=== PATIENT | male | born 1985 | race Caucasian/White ===

== ENCOUNTER 2019-06-03 13:39 | Emergency (ER) | payer SELFPAY ==
[2019-06-03 13:44] VITALS: BP 156/94; PULSE 65; RESP 14; TEMP 36.6; O2SAT 95
--- NOTE | 2019-06-03 13:52 | ED.GENADUL_ITS ---
Discharge Plan Disposition Patient Disposition: HOME Condition: Stable Discharge Details Chief Complaint: Orthopedic Clinical Impression: Contusion of hand, Contusion of right wrist, Abrasion hand Primary Care Provider: None,None ED Provider: Wendy Cardenas Home Meds and New Rx's Prescriptions: No Action No Known Home Meds RF: 0 Discharge Instructions Instructions: Contusion in Adults (ED), Abrasion (ED) Additional Instructions: Rest, ice and elevate your right hand and wrist as much as possible. Alternate Tylenol and Motrin as needed and directed for pain. Follow-up with the primary care doctor within the next week for reevaluation as needed. Return to the emergency department if you develop any worsening or new concerning symptoms. Discharge Data Discharge Date/Time-TO BE ENTERED AT DEPARTURE: 06/03/19 15:25 Discharge Physician: Wendy Cardenas Medical Decision Making 33-year-old male who presents with right hand and wrist pain after crushed under a water heater at work 30 minutes ago. He has a superficial abrasion to his right dorsal hand webspace and an area of edema right dorsal wrist. No right snuffbox tenderness. Unknown tetanus status tetanus given today. Hand and forearm x-rays negative. Offered to clean and dress wound but patient declines. Given Ramón wrap for home. He was advised on rice. Patient placed on care management list to arrange for a follow-up appoint with the primary care doctor. Usual and customary return precautions given prior to discharge. Imaging Data Radiologic Study: Radiologist's impression: XR HAND RT COMPLETE CLINICAL HISTORY: water heater crushed hand, r/o acute fx. TECHNIQUE: 2D digital imaging was performed. COMPARISON: No exams were available for comparison FINDINGS: BONES: No acute fracture is present. No bony destructive lesion is seen. JOINTS: No dislocation present. SOFT TISSUE: Normal. IMPRESSION: Unremarkable radiographs of the right hand. XR FOREARM RT CLINICAL HISTORY: water heater crushed wrist/forearm, r/o acute fx. TECHNIQUE: 2D digital imaging was performed. COMPARISON: No exams were available for comparison FINDINGS: BONES: No acute fracture is present. No bony destructive lesion is seen. Visualized portion of elbow and wrist joints are unremarkable. SOFT TISSUE: Normal. FINDINGS: Unremarkable radiographs of the right forearm. HPI General Mode of arrival: ambulatory . Date/Time Provider Initiated Documentation: 06/03/19 13:41 . Limitations to Documentation: no limitations . Information obtained by: patient . History of Present Illness 33 year old M presents to the emergency department with the chief complaint of R hand and wrist pain , Quality is described as aching, and is localized to the upper extremity. Patient proximal (from R hand to R distal forearm) and reports radiation to. Patient started experiencing this minute(s) (30) and it has been constant. Rest improves symptom(s), Movement worsens symptoms . Patient notes no other symptoms.. Patient did receive the following treatments prior to arrival, none Related Data Home Medications Medication Instructions Recorded Confirmed Unknown [No Known Home Meds] 06/03/19 06/03/19 Allergies Allergy/AdvReac Type Severity Reaction Status Date / Time pistachio nut Allergy Unverified 06/03/19 13:48 General Stated Complaint: Orthopedic MART: 4 Review of Systems All systems reviewed & are unremarkable except as noted in HPI and below PFSH Social History Smoking/Tobacco Use Status: Current every day Tobacco Type: cigarettes Alcohol Intake: current Alcohol Intake frequency: a few times a week Drug use: Never Substance use type: does not use Do you feel safe at home: Yes Do you feel safe in your relationship?: Yes Exam Const General: cooperative, healthy appearing and no acute distress HENMT Head: normal to inspection Mouth: oral mucosae normal Eyes General: appearance normal, both eyes and all related structures Neck Neck: normal visual inspection Resp Effort & Inspection: normal respiratory effort and able to speak in complete sentences Cardio Rate: regular rate Skin General skin exam: no rashes or lesions noted Neuro General: alert, awake and oriented x3 Motor: muscle tone normal throughout Extrem Elbow/forearm/wrist images: 1. 5 x 5 cm area of tender edema on dorsal wrist. No ecchymosis, erythema. Hand/finger images: 1. 1 x 1 cm superficial abrasion 2. 1 cm C-shaped superficial laceration. Edges well approximated. 3. 1 cm old healing laceration. Psych Appearance: grossly normal Affect: normal affect Course Vital Signs Vital signs: Vital Signs Temperature 97.9 F 06/03/19 13:44 Pulse 65 06/03/19 13:44 Respiratory Rate 14 06/03/19 13:44 Blood Pressure 156/94 H 06/03/19 13:44 Pulse Oximetry 95 06/03/19 13:44 Temperature 97.9 F 06/03/19 13:44 Temperature Source Temporal Artery Scan 06/03/19 13:44 Pulse 65 06/03/19 13:44 Respiratory Rate 14 06/03/19 13:44 Respiratory Effort Non-Labored 06/03/19 13:46 Blood Pressure 156/94 H 06/03/19 13:44 Blood Pressure Position Sitting 06/03/19 13:44 Pulse Oximetry 95 06/03/19 13:44 Oxygen Delivery Method Room Air 06/03/19 13:44 Oxygen Flow Rate 0 06/03/19 13:44 Pain Level 3 06/03/19 13:46
--- NOTE | 2019-06-03 14:37 | DI.RAD_ITS ---
EXAM: XR HAND RT COMPLETE CLINICAL HISTORY: water heater crushed hand, r/o acute fx. TECHNIQUE: 2D digital imaging was performed. COMPARISON: No exams were available for comparison FINDINGS: BONES: No acute fracture is present. No bony destructive lesion is seen. JOINTS: No dislocation present. SOFT TISSUE: Normal. IMPRESSION: Unremarkable radiographs of the right hand.
--- NOTE | 2019-06-03 14:39 | DI.RAD_ITS ---
EXAM: XR FOREARM RT CLINICAL HISTORY: water heater crushed wrist/forearm, r/o acute fx. TECHNIQUE: 2D digital imaging was performed. COMPARISON: No exams were available for comparison FINDINGS: BONES: No acute fracture is present. No bony destructive lesion is seen. Visualized portion of elbow and wrist joints are unremarkable. SOFT TISSUE: Normal. FINDINGS: Unremarkable radiographs of the right forearm.
--- NOTE | 2019-06-05 17:39 | NUR.NOTE ---
Nursing Note: Referral given to Surgical Assistant to establish care and follow up. Siria Paniagua.
== END 2019-06-03 15:25 | disposition home or self-care (01) ==
PROVIDERS: Emergency Provider Physician Assistant
DX: S60.511A Abrasion of right hand, initial encounter (principal); S60.211A Contusion of right wrist, initial encounter; W23.1XXA Caught, crushed, jammed, or pinched between stationary objects, initial encounter; Y99.0 Civilian activity done for income or pay
CPT/HCPCS: 90471; 99284; 73090; 73130; 99283